=== PATIENT | male | born 1970 | race Caucasian/White ===

== ENCOUNTER 2018-09-27 21:11 | Emergency (ER) | payer OTHER ==
[~2018-09-27] VITALS: Ht 182.9 cm; Wt 113.4 kg
[2018-09-27 21:23] VITALS: BP 148/83
[2018-09-28 12:05] LABS: HIV-1/HIV-2 ANTIBODY Non Reactive (Non Reactive)
== END 2018-09-27 22:00 | disposition home or self-care (01) ==
LOC: M.ERS 21:11
PROVIDERS: Nurse Practitioner Family
DX: Z77.21 Contact with and (suspected) exposure to potentially hazardous body fluids (principal)